=== PATIENT | male | born 1940 | race Caucasian/White ===

== ENCOUNTER 2016-09-16 08:48 | Emergency (ER) | payer MEDICARE ==
[2016-09-16] MEDS ORDERED: Ondansetron INJ* 2 MG/ML VIAL IV ONE (09:51)
[2016-09-16] MEDS ORDERED: Morphine INJ* 4 MG/ML 1 ML SYRINGE IV ONE (09:51)
[2016-09-16] MEDS ORDERED: Ondansetron INJ* 2 MG/ML VIAL ONE (09:52)
[2016-09-16] MEDS ORDERED: Morphine INJ* 4 MG/ML 1 ML SYRINGE ONE (09:52)
[2016-09-16 10:16] LABS: Hematocrit 43 % (42-52); Mean Corpuscular HGB Conc 33 g/dl (31-36); Mean Corpuscular Hemoglobin 29 pg (27-31); Mean Corpuscular Volume 89 fL (80-94); Mean Platelet Volume 8 um3 (7.4-10.4); Red Blood Count 4.83 10^6/ul (4.0-5.4); Red Cell Distribution Width 15 % (10.5-15); White Blood Count 14.2 10^3/ul (3.5-10.8)
[2016-09-16 10:44] LABS: Albumin 4.3 g/dL (3.2-5.2); BUN/Creatinine Ratio 14.7 (8-20); C Reactive Protein 20.88 mg/L (< 5.00); Calcium 9.9 mg/dL (8.6-10.3); EGFR African American 58.4 (>60); EGFR Non-African American 45.4 (>60); Globulin 3.6 g/dL (2-4); Potassium 4.2 mmol/L (3.5-5.0); Total Bilirubin 1.1 mg/dL (0.2-1.0); Total Protein 7.9 g/dL (6.4-8.9)
[2016-09-16 10:47] LABS: Urine Bacteria Absent (Absent); Urine Bilirubin Negative (Negative); Urine Glucose Negative (Negative); Urine Nitrite Positive (Negative)
[2016-09-16] MEDS ORDERED: Ciprofloxacin 400MG IVPREMIX(* 400 MG/200 ML BAG IVPB ONE (11:00)
[2016-09-16 12:57] VITALS: BP 134/82
--- NOTE | 2016-09-16 18:55 | ED ---
Satish Guzmán Thomas, scribed for Oswaldo Contreras MD on 09/16/16 at 0905 . GI/ HPI - HPI Summary HPI Summary: The pt is a 76 y/o M accompanied by and presenting to the ED c/o inability to void and lower abd pain since last night The pt reports that he had hematuria at 03:00 this morning. The pain is rated 9/10. The pain is aggravated and alleviated by nothing. The patient has not treated the pain prior to arrival. Pt additionally c/o hematuria. Pt denies fever. PMHx: BPH, HTN. SHx: former smoker, no alcohol, no drugs. - History of Current Complaint Chief Complaint: EDUrogenitalProblems Stated Complaint: BLOOD IN URINE Hx Obtained From: Patient, Family/Dietist - in room Onset/Duration: Started Days Ago - inability to void since last night, Worse Since - this AM at 03:00 Timing: Constant Severity: Severe Current Severity: Severe Pain Intensity: 9 Associated Signs and Symptoms: Positive: Hematuria, Other: - POS: lower abd pain. Negative: Fever Aggravating Factor(s): Nothing Alleviating Factor(s): Nothing - Allergy/Home Medications Allergies/Adverse Reactions: Allergies Allergy/AdvReac Type Severity Reaction Status Date / Time No Known Allergies Allergy Verified 08/05/15 08:30 PMH/Surg Hx/FS Hx/Imm Hx Previously Healthy: No Cardiovascular History: Reports: Hx Hypertension History: Reports: Hx Benign Prostatic Hyperplasia - Surgical History Surgery Procedure, Year, and Place: none Infectious Disease History: Denies: Traveled Outside the [place] in Last 30 Days - Family History Known Family History: Negative: Diabetes - Social History Alcohol Use: None Substance Use Type: Reports: None Smoking Status (MU): Former Smoker Review of Systems Negative: Fever Positive: hematuria - today at 03:00, other - POS: inability to void since last night All Other Systems Reviewed And Are Negative: Yes Physical Exam - Summary Physical Exam Summary: VITAL SIGNS: Reviewed. GENERAL: ~Patient is an elderly male who is lying in the stretcher. He is in a lot of distress secondary to urinary discomfort. HEAD AND FACE: No signs of trauma. ~No ecchymosis, hematomas or skull depressions. No sinus tenderness. EYES: PERRLA, EOMI x 2, No injected conjunctiva, no nystagmus. EARS: Hearing grossly intact. Ear canals and tympanic membranes are within normal limits. MOUTH: Oropharynx within normal limits. NECK: Supple, trachea is midline, no adenopathy, no JVD, no carotid bruit, no c- spine tenderness, neck with full ROM. CHEST: Symmetric, no tenderness at palpation LUNGS: Clear to auscultation bilaterally. No wheezing or crackles. CVS: Regular rate and rhythm, S1 and S2 present, no murmurs or gallops appreciated. ABDOMEN: Soft, distended, and tenderness to the lower abd secondary to distension. No rebound no guarding, and no masses palpated. Bowel sounds are normal. EXTREMITIES: FROM in all major joints, no edema, no cyanosis or clubbing. NEURO: Alert and oriented x 3. No acute neurological deficits. Speech is normal and follows commands. SKIN: Dry and warm Triage Information Reviewed: Yes Vital Signs On Initial Exam: Initial Vitals Temp Pulse Resp BP Pulse Ox 96.6 F 101 22 185/99 96 09/16/16 08:49 09/16/16 08:49 09/16/16 08:49 09/16/16 08:49 09/16/16 08:49 Vital Signs Reviewed: Yes Diagnostics - Vital Signs Vital Signs Temp Pulse Resp BP Pulse Ox 09/16/16 08:49 96.6 F 101 22 185/99 96 - Laboratory Lab Results: Lab Results 09/16/16 09/16/16 09/16/16 Range/Units 09:55 09:55 09:55 WBC 14.2 H (3.5-10.8) 10^3/ul RBC 4.83 (4.0-5.4) 10^6/ul Hgb 14.0 (14.0-18.0) g/dl Hct 43 (42-52) % MCV 89 (80-94) fL MCH 29 (27-31) pg MCHC 33 (31-36) g/dl RDW 15 (10.5-15) % Plt Count 215 (150-450) 10^3/ul MPV 8 (7.4-10.4) um3 Neut % (Auto) 85.2 H (38-83) % Lymph % (Auto) 7.9 L (25-47) % [place] % (Auto) 6.5 (1-9) % Eos % (Auto) 0.1 (0-6) % Baso % (Auto) 0.3 (0-2) % Absolute Neuts (auto) 12.1 H (1.5-7.7) 10^3/ul Absolute Lymphs (auto) 1.1 (1.0-4.8) 10^3/ul Absolute Monos (auto) 0.9 H (0-0.8) 10^3/ul Absolute Eos (auto) 0 (0-0.6) 10^3/ul Absolute Basos (auto) 0 (0-0.2) 10^3/ul Absolute Nucleated RBC 0.01 10^3/ul Nucleated RBC % 0 Sodium 136 (133-145) mmol/L Potassium 4.2 (3.5-5.0) mmol/L Chloride 100 L (101-111) mmol/L Carbon Dioxide 26 (22-32) mmol/L Anion Gap 10 (2-11) mmol/L BUN 22 (6-24) mg/dL Creatinine 1.50 H (0.67-1.17) mg/dL Est GFR ( Amer) 58.4 (>60) Est GFR (Non-Af Amer) 45.4 (>60) BUN/Creatinine Ratio 14.7 (8-20) Glucose 149 H (70-100) mg/dL Lactic Acid 2.5 H* (0.5-2.0) mmol/L Calcium 9.9 (8.6-10.3) mg/dL Total Bilirubin 1.10 H (0.2-1.0) mg/dL AST 15 (13-39) U/L ALT 16 (7-52) U/L Alkaline Phosphatase 66 (34-104) U/L C-Reactive Protein 20.88 H (< 5.00) mg/L Total Protein 7.9 (6.4-8.9) g/dL Albumin 4.3 (3.2-5.2) g/dL Globulin 3.6 (2-4) g/dL Albumin/Globulin Ratio 1.2 (1-3) Urine Color Urine Appearance Urine pH (5-9) Ur Specific [employer] Mdl (1.010-1.030) Urine Protein (Negative) Urine Ketones (Negative) Urine Blood (Negative) Urine Nitrate (Negative) Urine Bilirubin (Negative) Urine Urobilinogen (Negative) Ur Leukocyte Esterase (Negative) Urine WBC (Auto) (Absent) Urine RBC (Auto) (Absent) Urine Bacteria (Absent) Urine Glucose (Negative) 09/16/16 Range/Units 10:24 WBC (3.5-10.8) 10^3/ul RBC (4.0-5.4) 10^6/ul Hgb (14.0-18.0) g/dl Hct (42-52) % MCV (80-94) fL MCH (27-31) pg MCHC (31-36) g/dl RDW (10.5-15) % Plt Count (150-450) 10^3/ul MPV (7.4-10.4) um3 Neut % (Auto) (38-83) % Lymph % (Auto) (25-47) % [place] % (Auto) (1-9) % Eos % (Auto) (0-6) % Baso % (Auto) (0-2) % Absolute Neuts (auto) (1.5-7.7) 10^3/ul Absolute Lymphs (auto) (1.0-4.8) 10^3/ul Absolute Monos (auto) (0-0.8) 10^3/ul Absolute Eos (auto) (0-0.6) 10^3/ul Absolute Basos (auto) (0-0.2) 10^3/ul Absolute Nucleated RBC 10^3/ul Nucleated RBC % Sodium (133-145) mmol/L Potassium (3.5-5.0) mmol/L Chloride (101-111) mmol/L Carbon Dioxide (22-32) mmol/L Anion Gap (2-11) mmol/L BUN (6-24) mg/dL Creatinine (0.67-1.17) mg/dL Est GFR ( Amer) (>60) Est GFR (Non-Af Amer) (>60) BUN/Creatinine Ratio (8-20) Glucose (70-100) mg/dL Lactic Acid (0.5-2.0) mmol/L Calcium (8.6-10.3) mg/dL Total Bilirubin (0.2-1.0) mg/dL AST (13-39) U/L ALT (7-52) U/L Alkaline Phosphatase (34-104) U/L C-Reactive Protein (< 5.00) mg/L Total Protein (6.4-8.9) g/dL Albumin (3.2-5.2) g/dL Globulin (2-4) g/dL Albumin/Globulin Ratio (1-3) Urine Color Yellow Urine Appearance Cloudy Urine pH 6.0 (5-9) Ur Specific [employer] Mdl 1.009 L (1.010-1.030) Urine Protein 2+(100 mg/dl) H (Negative) Urine Ketones Negative (Negative) Urine Blood 3+ H (Negative) Urine Nitrate Positive H (Negative) Urine Bilirubin Negative (Negative) Urine Urobilinogen Negative (Negative) Ur Leukocyte Esterase 3+ H (Negative) Urine WBC (Auto) 3+(>20/hpf) H (Absent) Urine RBC (Auto) 3+(>10/hpf) H (Absent) Urine Bacteria Absent (Absent) Urine Glucose Negative (Negative) Result Diagrams: 09/16/16 09:55 09/16/16 09:55 Lab Statement: Any lab studies that have been ordered have been reviewed, and results considered in the medical decision making process. GIGU Course/Dx - Course Assessment/Plan: The pt is a 76 y/o M accompanied by and presenting to the ED c/o inability to void and lower abd pain since last night The pt reports that he had hematuria at 03:00 this morning. The pain is rated 9/10. The pain is aggravated and alleviated by nothing. The patient has not treated the pain prior to arrival. Pt additionally c/o hematuria. Pt denies fever. PMHx: BPH, HTN. SHx: former smoker, no alcohol, no drugs. Tests show WBC 14.3 without bands, creatinine 1.5 (which is chronic for him), and glucose 149. UA is consistent for UTI. In the ED course we placed a avila catheter which had some hematuria. The patient was given IV fluids and ciprofloxacin for UTI. The patient is feeling better. The pain has subsided, therefore, the patient will be discharged home with follow up with urology. He will continue to have the Avila catheter in him until he sees urology. The patient is hemodynamically stable and AOx3. He is diagnosed with urinary retention, UTI, and hematuria. I discussed all the findings and test results with the patient. Patient was instructed to return to the emergency room immediately if any of the symptoms return or worsens. They were explained the possibility of an early abdominal pathology which was not detected at this time despite the physical exam and testing. They understand and agree. Abdominal exam before discharge: Soft, NT. No signs of distention. BS present. No rebound no guarding, and no masses palpated. Patient is alert and oriented and hemodynamically stable. Patient is to follow up with primary care physician in the next 2 to 3 days. Patient agree and understands. - Diagnoses Differential Diagnoses - Male: Other Provider Diagnoses: Urinary retention, UTI (urinary tract infection), Hematuria Discharge - Discharge Plan Condition: Stable Disposition: HOME Prescriptions: Ciprofloxacin TAB* [Cipro 500 MG TAB*] 500 mg PO BID #6 tab Patient Education Materials: Urinary Retention in Men (ED), Urinary Tract Infection in Men (ED), Hematuria (ED) Referrals: Thomas Blanchard MD [Medical Doctor] - 2 Days The documentation as recorded by the Satish carrillo Thomas accurately reflects the service I personally performed and the decisions made by , Oswaldo Contreras MD.
--- NOTE | 2016-09-18 09:18 | PN ---
Progress Note - Progress Note Date of Service: 09/18/16 Note: Patient urine culture grew citrobacter Braakii >100,000. patient placed on cipro. will wait for final culture.
== END 2016-09-16 12:53 | disposition home or self-care (01) ==
LOC: ED 08:48
DX: R33.9 Retention of urine, unspecified (principal); N39.0 Urinary tract infection, site not specified; R31.9 Hematuria, unspecified; R10.30 Lower abdominal pain, unspecified
CPT/HCPCS: 36415; 80053; 81003; 81015; 83605; 85025; 86140; 87077; 87086; 87186; 96374; 96375; 99285; J0744; J2270; J2405

== ENCOUNTER 2017-07-06 00:22 | Inpatient (IN) | payer MEDICARE ==
[2017-07-06] MEDS ORDERED: Ondansetron INJ* 2 MG/ML VIAL IV ONE (01:03)
[2017-07-06] MEDS ORDERED: Morphine VIAL* 4 MG/ML VIAL (1 ml vial) IV ONE (01:03)
[2017-07-06 01:27] LABS: ABS Basophils 0 10^3/ul (0-0.2); ABS Eosinophils 0 10^3/ul (0-0.6); ABS Monocytes 0.9 10^3/ul (0-0.8); ABS Nucleated RBC 0 10^3/ul; Eosinophil % 0.4 % (0-6); Hematocrit 37 % (42-52); Hemoglobin 12.2 g/dl (14.0-18.0); Lymphocyte % 9.2 % (25-47); Mean Corpuscular HGB Conc 33 g/dl (31-36); Mean Corpuscular Hemoglobin 28 pg (27-31); Mean Corpuscular Volume 86 fL (80-94); Mean Platelet Volume 7.5 um3 (7.4-10.4); Nucleated Red Blood Cells % 0; Platelet Count 186 10^3/ul (150-450); Red Blood Count 4.29 10^6/ul (4.0-5.4); Red Cell Distribution Width 15 % (10.5-15)
[2017-07-06 01:37] LABS: INR 0.98 (0.77-1.02)
[2017-07-06 01:45] LABS: EGFR Non-African American 53.4 (>60)
--- NOTE | 2017-07-06 02:42 | HP ---
H&P (Free Text) History and Physical: PCP: none Date/Time: 07/06/2017 0215 CC: fall/L hip pain HPI: Mr Abbott is a 77YO male with an incomplete PMHx due to not following with a PCP. He does give a HX of chronic SOB, moderate hardness of hearing, urinary retention with indwelling avila which he has come to the ED to have exchanged when he felt it necessary. This AM he was carrying a propane tank when he tripped and fell landing on his L hip experiencing immediate severe pain. There were no prodromal symptoms. He did not hit his head and did not lose consciousness. He was unable to bear weight and required assistance into his home where he spent the rest of the day. Tonight his pain was not improving and he could not stand and so decided to present for evaluation which has revealed a displaced L intertrochanteric hip FX. He denies SOB or chest pain w/ exertion , HX heart/lung/liver/kidney disease. Lab values are reasonably normal. Case was reviewed w/ B MD Germaine orthopedic surgeon 1st call who did not feel comfortable performing the surgery and deferred to A MD Alexandra orthopedic surgeon 2nd call who accepted. PMedHx chronic SOB moderate hardness of hearing urinary retention with indwelling avila CKD 3 Ambulatory Orders NK [No Home Medications Reported] 07/06/17 Allergies No Known Allergies Allergy (Verified 08/05/15 08:30) PSurgHx denies SocHx: quit smoking "50-60 years ago", denies alcohol & recreational drugs; lives with his ; full code status FamHx: denies chronic illnesses ROS: as above, otherwise reviewed and all were negative vitals: Vital Signs Temp 36.5 C 07/06/17 00:34 Pulse 90 07/06/17 03:32 Resp 20 07/06/17 03:32 BP 172/94 07/06/17 03:32 Pulse Ox 95 07/06/17 03:32 Intake & Output 07/05/17 07/05/17 07/06/17 11:59 23:59 11:59 Weight 108.862 kg Constitutional: NAD, normally developed, obese elderly white male HEENM: atraumatic; sclera/conjunctiva: anicteric/clear; hearing: clinically intact; oropharynx: clear, mucosa moist Neck: soft tissue: non-tender; thyroid: Pulmonary: clear to auscultation bilaterally, good aeration, no accessory muscle use CV: RR/RR, normal S1S2, no carotid bruit, no jugular venous distention, 2+ B DP/ PT, 1+ BLE edema Abdominal: soft, non-distended, non-tender, no rebound/guarding/rigidity, normoactive bowel sounds, no hepatosplenomegaly or masses, no costovertebral angle tenderness Musculoskeletal: general: LLE shortened & externally rotated; gait: currently non-ambulatory Integumental: normal appearance and texture of exposed skin Psychiatric orientation: AA&O to PPS affect: calm mood: cooperative eye contact: fair content: reliable responses: timely insight: fair Testing: Lab Results 07/06/17 07/06/17 07/06/17 Range/Units 01:22 01:22 01:22 WBC 11.0 H (3.5-10.8) 10^3/ul RBC 4.29 (4.0-5.4) 10^6/ul Hgb 12.2 L (14.0-18.0) g/dl Hct 37 L (42-52) % MCV 86 (80-94) fL MCH 28 (27-31) pg MCHC 33 (31-36) g/dl RDW 15 (10.5-15) % Plt Count 186 (150-450) 10^3/ul MPV 7.5 (7.4-10.4) um3 Neut % (Auto) 81.5 (38-83) % Lymph % (Auto) 9.2 L (25-47) % [place] % (Auto) 8.6 H (0-7) % Eos % (Auto) 0.4 (0-6) % Baso % (Auto) 0.3 (0-2) % Absolute Neuts (auto) 9.0 H (1.5-7.7) 10^3/ul Absolute Lymphs (auto) 1.0 (1.0-4.8) 10^3/ul Absolute Monos (auto) 0.9 H (0-0.8) 10^3/ul Absolute Eos (auto) 0 (0-0.6) 10^3/ul Absolute Basos (auto) 0 (0-0.2) 10^3/ul Absolute Nucleated RBC 0 10^3/ul Nucleated RBC % 0 INR (Anticoag Therapy) 0.98 (0.77-1.02) APTT 28.7 (26.0-36.3) seconds Sodium 137 L (139-145) mmol/L Potassium 4.4 (3.5-5.0) mmol/L Chloride 103 (101-111) mmol/L Carbon Dioxide 26 (22-32) mmol/L Anion Gap 8 (2-11) mmol/L BUN 22 (6-24) mg/dL Creatinine 1.30 H (0.67-1.17) mg/dL Est GFR ( Amer) 68.7 (>60) Est GFR (Non-Af Amer) 53.4 (>60) BUN/Creatinine Ratio 16.9 (8-20) Glucose 150 H (70-100) mg/dL Calcium 9.0 (8.6-10.3) mg/dL Total Bilirubin 0.80 (0.2-1.0) mg/dL AST 13 (13-39) U/L ALT 12 (7-52) U/L Alkaline Phosphatase 50 (34-104) U/L Troponin I 0.00 (<0.04) ng/mL Total Protein 6.9 (6.4-8.9) g/dL Albumin 3.8 (3.2-5.2) g/dL Globulin 3.1 (2-4) g/dL Albumin/Globulin Ratio 1.2 (1-3) Blood Type Antibody Screen 07/06/17 Range/Units 01:22 WBC (3.5-10.8) 10^3/ul RBC (4.0-5.4) 10^6/ul Hgb (14.0-18.0) g/dl Hct (42-52) % MCV (80-94) fL MCH (27-31) pg MCHC (31-36) g/dl RDW (10.5-15) % Plt Count (150-450) 10^3/ul MPV (7.4-10.4) um3 Neut % (Auto) (38-83) % Lymph % (Auto) (25-47) % [place] % (Auto) (0-7) % Eos % (Auto) (0-6) % Baso % (Auto) (0-2) % Absolute Neuts (auto) (1.5-7.7) 10^3/ul Absolute Lymphs (auto) (1.0-4.8) 10^3/ul Absolute Monos (auto) (0-0.8) 10^3/ul Absolute Eos (auto) (0-0.6) 10^3/ul Absolute Basos (auto) (0-0.2) 10^3/ul Absolute Nucleated RBC 10^3/ul Nucleated RBC % INR (Anticoag Therapy) (0.77-1.02) APTT (26.0-36.3) seconds Sodium (139-145) mmol/L Potassium (3.5-5.0) mmol/L Chloride (101-111) mmol/L Carbon Dioxide (22-32) mmol/L Anion Gap (2-11) mmol/L BUN (6-24) mg/dL Creatinine (0.67-1.17) mg/dL Est GFR ( Amer) (>60) Est GFR (Non-Af Amer) (>60) BUN/Creatinine Ratio (8-20) Glucose (70-100) mg/dL Calcium (8.6-10.3) mg/dL Total Bilirubin (0.2-1.0) mg/dL AST (13-39) U/L ALT (7-52) U/L Alkaline Phosphatase (34-104) U/L Troponin I (<0.04) ng/mL Total Protein (6.4-8.9) g/dL Albumin (3.2-5.2) g/dL Globulin (2-4) g/dL Albumin/Globulin Ratio (1-3) Blood Type A Negative Antibody Screen Negative ECG, personally reviewed: NSR rate 93, Q-waves II/III/AVF, no ischemia CXR, personally reviewed: no acute process XRY L hip, personally reviewed: displaced L intertrochanteric hip FX Impression: 77M w/ obscure HX presenting with L hip FX s/p mechanical fall DIAGNOSIS & PLAN Primary L intertrochanteric hip FX, displaced : admit for surgical management : Lexie Morris MD orthopedic surgeon consulted & will evaluate in AM : obtain full L femur XRY : obtain CT L hip : pain control : NPO x/ meds w/ sips H20 : bed rest : supportive care evidence of old inferior AL on ECG : denies anginal symptoms w/ exertion : check ECHO in AM : consider cardiology consult, if appropriate pending above elevated BP : uncertain if HTN or 2nd pain : pain control & monitor : hydralazine IV PRN CKD stg 3 : periodic monitoring Secondary urinary retention w/ chronic indwelling avila : current avila is filthy and malodorous, tubing is nearly black; exchange : son is adamant he does not want a specific urologist to see his father, but is unsure which - will further inform chronic SOB : negative CXR : remote HX of smoking Admission Rational: inpatient for surgical management of displaced L hip FX DVTp: heparin SQ Code Status: full HCP:
--- NOTE | 2017-07-06 03:11 | ED ---
Rupinder Guzmán Gabriel, scribalex for Luiza Gimenez MD on 07/06/17 at 0113 . Lower Extremity - HPI Summary HPI Summary: This patient is a 77 year old M presenting to [facility] accompanied by his family s/ p fall that occurred earlier today. The patient had a mechanical fall on concrete, injuring his left hip. He attempted to lay in bed until it resolved but he is still unable to walk. The patient rates the pain 4/10 in severity. Patient reports LLE pain. - History of Current Complaint Chief Complaint: EDHipPelvisInjury Stated Complaint: FALL/POSSIBLE BROKEN LEG Time Seen by Provider: 07/06/17 00:34 Hx Obtained From: Patient Mechanism Of Injury: Fall From A Standing Position Onset of Pain: Immediate Onset/Duration: Still Present Severity Initially: Mild Severity Currently: Mild Pain Intensity: 4 Pain Scale Used: 0-10 Numeric Timing: Constant Location: Is Discrete @ - LLE Able to Bear Weight: No - Allergies/Home Medications Allergies/Adverse Reactions: Allergies Allergy/AdvReac Type Severity Reaction Status Date / Time No Known Allergies Allergy Verified 08/05/15 08:30 PMH/Surg Hx/FS Hx/Imm Hx Endocrine/Hematology History: Denies: Hx Thyroid Disease Cardiovascular History: Reports: Hx Hypertension Denies: Hx Auto Implanted Cardiovert Defib, Hx Embolism, Hx Pacemaker/ICD, Hx Peripheral Vascular Disease, Hx Rheumatic Fever Respiratory History: Denies: Hx Chronic Bronchitis, Hx Chronic Obstructive Pulmonary Disease (COPD ) GI History: Denies: Hx Gastrointestinal Bleed History: Reports: Hx Benign Prostatic Hyperplasia Musculoskeletal History: Denies: Hx Congenital Bone Abnormalities - Surgical History Surgery Procedure, Year, and Place: none Infectious Disease History: No Infectious Disease History: Denies: Traveled Outside the [place] in Last 30 Days - Family History Known Family History: Negative: Diabetes, Renal Disease, Respiratory Disease, Seizure Disorder - Social History Lives: With Family Alcohol Use: None Substance Use Type: Reports: None Smoking Status (MU): Former Smoker Review of Systems Constitutional: Other - fall Negative: Fever Positive: Other - LLE pain All Other Systems Reviewed And Are Negative: Yes Physical Exam - Summary Physical Exam Summary: VITAL SIGNS: Reviewed. GENERAL: Patient is an elderly male who is lying comfortable in the stretcher. Patient is not in any acute respiratory distress. HEAD AND FACE: No signs of trauma. No ecchymosis, hematomas or skull depressions. No sinus tenderness. EYES: PERRLA, EOMI x 2, No injected conjunctiva, no nystagmus. EARS: Hearing grossly intact. Ear canals and tympanic membranes are within normal limits. MOUTH: Oropharynx within normal limits. NECK: Supple, trachea is midline, no adenopathy, no JVD, no carotid bruit, no c- spine tenderness, neck with full ROM. CHEST: Symmetric, no tenderness at palpation LUNGS: Clear to auscultation bilaterally. No wheezing or crackles. CVS: Regular rate and rhythm, S1 and S2 present, no murmurs or gallops appreciated. ABDOMEN: Soft, non-tender. distended. No rebound no guarding, and no masses palpated. Bowel sounds are normal. Sparks catheter in place EXTREMITIES: LLE is shorter and TTP, there is bilateral LE edema NEURO: Alert and oriented x 3. No acute neurological deficits. Speech is normal and follows commands. SKIN: Dry and warm Triage Information Reviewed: Yes Vital Signs On Initial Exam: Initial Vitals Temp Pulse Resp BP Pulse Ox 97.7 F 97 20 154/105 96 07/06/17 00:34 07/06/17 00:34 07/06/17 00:34 07/06/17 00:34 07/06/17 00:34 Vital Signs Reviewed: Yes Diagnostics - Vital Signs Vital Signs Temp Pulse Resp BP Pulse Ox 07/06/17 00:34 97.7 F 97 20 154/105 96 - Laboratory Result Diagrams: 07/06/17 01:22 07/06/17 01:22 Lab Statement: Any lab studies that have been ordered have been reviewed, and results considered in the medical decision making process. - Radiology CXR Radiology Interpretation Completed By: ED Physician - mild venous congestion hip Xray Radiology Interpretation Completed By: ED Physician - Left trochanter fracture - EKG 01:54 Cardiac Rate: NL EKG Rhythm: Sinus Rhythm - at 92 BPM EKG Interpretation: Normal axis. Normal interval. No ischemic changes Lower Extremity Course/Dx - Course Assessment/Plan: This patient is a 77 year old M presenting to [facility] accompanied by his family s/p fall that occurred earlier today. The patient had a mechanical fall on concrete, injuring his left hip. He attempted to lay in bed until it resolved but he is still unable to walk. The patient rates the pain 4/10 in severity. Patient reports LLE pain. An EKG reveals Normal axis. Normal interval. No ischemic changes. CXR reveals, mild venous congestion. Hip xray reveals fracture. Blood work obtained. In the ED course the patient was given zofran and morphine. We discussed patient care with Dr. Alexander and they accepted the patient for admission. Patient will be admitted. The patient is agreeable with this plan. - Diagnoses Provider Diagnoses: Hip fracture - Physician Notifications Discussed Care Of Patient With: Lloyd Alexander Time Discussed With Above Provider: 02:00 Instructed by Provider To: Admit As Inpatient Discharge - Sign-Out/Discharge Documenting (check all that apply): Discharge/Admit/Transfer - admitted to Dr. Goel - Discharge Plan Condition: Fair Disposition: ADMITTED TO [facility] Referrals: Non Staff,Doctor [Medical Doctor] - The documentation as recorded by the Rupinder carrillo Gabriel accurately reflects the service I personally performed and the decisions made by me, Luiza Gimenez MD.
[2017-07-06] MEDS ORDERED: Albuterol 2.5 MG/3 ML NEB.SOL* (0.083%) INH PRN (04:44)
[2017-07-06] MEDS ORDERED: Ondansetron INJ* 2 MG/ML VIAL IV PRN (05:00)
[2017-07-06] MEDS ORDERED: hydrALAZINE IV* 20 MG/ML VIAL IV PRN (05:00)
[2017-07-06] MEDS: HYDROmorphone INJ* 2 MG/ML CARPUJECT SYRINGE IV PRN ×3 (06:14→17:32)
[2017-07-06] MEDS: NS 0.9% 1000 ML* 1,000 ML IV SCH ×2 (06:16→20:07)
[2017-07-06] MEDS ORDERED: Perflutren Lipid Microsphere* 3 ML VIAL ONE (07:38)
--- NOTE | 2017-07-06 07:57 | RAD ---
Indication: Left hip injury. 2 views left hip and an AP view of the pelvis demonstrates intertrochanteric fracture of the left hip. Pelvic ring is grossly intact. IMPRESSION: Intertrochanteric fracture left hip.
--- NOTE | 2017-07-06 07:57 | RAD ---
Indication: Fall, preop chest. Single frontal view of the chest performed at 0133 hours was reviewed. Comparison is made with previous exam dated August 05, 2015. No mediastinal shift is noted. Heart is of normal size and configuration. Lung pritchard appear clear. There may be some bibasilar atelectasis noted. Overall no changes noted since prior exam. IMPRESSION: NO ACTIVE CARDIOPULMONARY DISEASE IS NOTED. LIKELY BIBASILAR ATELECTASIS.
--- NOTE | 2017-07-06 08:30 | RAD ---
Indication: Left hip fracture. CT of the pelvis was performed in the axial plane. Sagittal and coronal reconstructed images were obtained. The pelvic ring is intact. The inferior and superior pubic rami are unremarkable. There is a moderately comminuted fracture of the left hip extending from the lesser to greater trochanter. Small adjacent hematoma is noted. The right hip demonstrates no evidence of fracture. A bladder catheter is in place. There is suggestion of a intraluminal mass urinary bladder for which cystoscopy is suggested. There is a markedly enlarged prostate noted. Diverticulosis without evidence of diverticulitis is noted. IMPRESSION: Mildly comminuted intertrochanteric fracture of the left hip.
--- NOTE | 2017-07-06 08:36 | RAD ---
INDICATION: Left hip fracture COMPARISON: Left hip same date TECHNIQUE: AP and lateral views were obtained. FINDINGS: There is an intertrochanteric fracture of the left femur as described in a separate report. There are no other femoral fractures. There is osteoarthritic change about the knee. IMPRESSION: INTERTROCHANTERIC FRACTURE LEFT FEMUR
--- NOTE | 2017-07-06 08:38 | CONSULT ---
Consult Consult: Orthopedic Surgery Consultation Date: 07/06/17 Requesting Service: ER Chief Complaint: Left hip pain. History: A 77-year-old man who sustained a mechanical fall last night while carrying a propane tank. He fell onto his left hip. He had immediate pain and an inability to bear weight. He was brought into the emergency room for further evaluation. Denies head strike or LOC. At baseline, he walks without assistive devices at home but uses a walker or wheelchair in the community. The pain is located at the left hip and is constant moderate, sharp. Pain worse with hip ROM and lessened when rested. Review of Systems: Negative for fever, recent visual changes, difficulty swallowing, chest pain, abdominal pain, easy bruising, diffuse weakness or lack of coordination, and diffuse rash. He has an indwelling Sparks catheter. He does report chronic shortness of breath. PMH: Indwelling Sparks catheter. Stroke. Chronic kidney disease. Shortness of breath. He does not have a primary care physician or regularly see a doctor. PSH: Denies Medications: Denies Allergies: No known drug allergies SH: Former smoker. Denies alcohol or illicit drugs. Lives with his . FH: Noncontributory Physical Examination: Constitutional: Temperature 98.3, pulse 96, respiratory rate 14, oxygen saturation 99% on room air, blood pressure 148/67 General appearance is healthy and non-septic in no acute distress. Cardiovascular: Pulse examination demonstrates positive pedal pulses with brisk capillary refill. There are no varicosities. Heart with a regular rate and rhythm. Lungs sounds clear bilaterally. Abdomen: Soft and nontender Lymphatic: No lymphadenopathy appreciated. Skin: Bilateral upper and lower extremity examination demonstrates no ulcerative lesions. Psychiatric / Neurological: Appropriate affect. Alert and oriented to person, place and time. There is no significant abnormality in coordination appreciated. Normoreflexive deep tendon reflex of the affected extremity. Musculoskeletal: Bilateral upper extremities and contralateral lower extremity show full range of motion with no evidence of instability and no tenderness with palpation and 5 /5 strength. There is no gross deformity. The extremity is shortened and externally rotated Skin intact 5/5 motor strength distally with intact sensation to light touch There is no global swelling, edema, or varicosities. Pain with him logroll and heel strike No TTP at knee, lower leg, ankle, foot Palpable DP pulse. Flexes and extends ankle and toes. Imaging: X-rays were obtained, and independently interpreted and show a displaced left hip intertrochanteric fracture. Labs: WBC 11.0 HCT 37 Platelets 186 Cr 1.30 INR 0.98 Impression and Plan: 77-year-old man status post a mechanical fall with a displaced left hip intertrochanteric fracture. We discussed both nonoperative and operative treatment options. My recommendation is surgical intervention when medically cleared. Specifically, the surgery would be a left hip fracture open reduction and internal fixation with a cephalomedullary nail. We discussed the risks/benefits and pros/cons of both options. After this discussion, we came to the decision that we would move forward with surgery. For now, nonweightbearing in the affected extremity. NPO at midnight for possible OR tomorrow if medically cleared. Appreciate medical clearance. I recommend chemical and mechanical DVT prophylaxis. Joe Morris MD
[2017-07-06 08:49] LABS: Hematocrit 37 % (42-52); Hemoglobin 12.3 g/dl (14.0-18.0)
[2017-07-06] MEDS ORDERED: Heparin VIAL(*) 5000 UNITS/ML VIAL (FIVE THOUSAND) SUBCUT SCH (09:00)
[2017-07-06] MEDS: Pantoprazole IV* 40 MG IV SCH (09:52)
--- NOTE | 2017-07-06 10:23 | ECHO ---
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 PMHx: chronic SOB,remote smoking history,CKD stage III, old VA. Definity used to enhance images. Study completed with patient supine due to fractured left hip. Technical Comments: The study is technically difficult. Completed at 0810. The study is technically limited due to the patient's smoking history. Parasternal views good, apical views suboptimal. The study was technically limited due to the patient's inability to lay in the left lateral decubitus position. Left Ventricle: The left ventricular chamber size is decreased. Mild concentric left ventricular hypertrophy is observed. Global left ventricular wall motion and contractility are within normal limits. There is normal left ventricular systolic function. The estimated ejection fraction is 60-65%. Normal left ventricular diastolic filling is observed. Left Atrium: The left atrium is not well visualized. Right Ventricle: The right ventricular cavity size is normal. The right ventricular global systolic function is normal. Right Atrium: The right atrium is not well visualized. Aortic Valve: The aortic valve is trileaflet. Mild aortic cusp sclerosis is present. There is no evidence of aortic regurgitation. There is mild aortic stenosis. The highest aortic valve velocity was obtained with the standard probe from the A5C view. Mitral Valve: There is mitral annular calcification. There is no evidence of mitral regurgitation. There is no evidence of mitral stenosis. Tricuspid Valve: The tricuspid valve leaflets are normal. There is no evidence of tricuspid valve regurgitation. Unable to estimate the right ventricular systolic pressure. There is no tricuspid stenosis. Pulmonic Valve: The pulmonic valve structure is not well visualized. Pericardium: A pericardial fat pad is visualized. Aorta: There is mild dilatation of the ascending aorta. There is no dilatation of the aortic arch.Color suggestive of reversal of flow in diastole. There is no dilation of the aortic root. Pulmonary Artery: The main pulmonary artery is not well visualized. Venous: The venous system is not well visualized. Contrast: Definity was used to optimize study. A total of 5 ml used. Intravenous contrast was used to enhance endocardial border definition. Conclusions The study is technically limited. Mild concentric left ventricular hypertrophy is observed. Global left ventricular wall motion and contractility are within normal limits. The estimated ejection fraction is 60-65%. The right ventricular global systolic function is normal. There is mild aortic stenosis: mean gradient 11 mmHg, PATRICIO 2.2-2.7 mmHg. DI = 0.66. There is mitral annular calcification with normal function. There is mild dilatation of the ascending aorta. Color suggestive of reversal of flow in diastole in the descending aorta, obtaining additional views, possible artifact from Definity contrast. No prior echo to compare. Measurements Name Value Normal Range RVIDd (AP) 2D 2.2 cm (0.9 - 2.6) RVDdMajor (2D) 2.3 cm (2.2 - 4.4) IVSd (2D) 1.2 cm (0.6 - 1) LVPWd (2D) 1.2 cm (0.6 - 1) LVIDd (2D) 3.2 cm (3.6 - 5.4) LVIDs (2D) 2.1 cm - LV FS (2D) 34 % (25 - 45) Aortic Annulus 2.1 cm (1.4 - 2.6) Ao root diameter (2D) 3.3 cm (2.1 - 3.5) Ascending Ao 3.6 cm (2.1 - 3.4) Aortic arch 2.8 cm (1.8 - 3.4) Descending Ao 0.6 cm - Name Value Normal Range MV E-wave Vmax 0.9 m/sec - MV deceleration time 257 msec - MV A-wave Vmax 1.2 m/sec - MV E:A ratio 0.74 ratio - LV septal e' Vmax 0.08 m/sec - LV lateral e' Vmax 0.09 m/sec - LV E:e' septal ratio 11.25 ratio - LV E:e' lateral ratio 10 ratio - Name Value Normal Range AV Vmax 2.4 m/sec - AV VTI 44.5 cm - AV peak gradient 23.28 mmHg - AV mean gradient 11.01 mmHg - LVOT diameter 2.3 cm - LVOT Vmax 1.3 m/sec - LVOT VTI 29.2 cm - LVOT peak gradient 6.82 mmHg - LVOT mean gradient 2.88 mmHg - PATRICIO (continuity Vmax) 2.2 cm2 - PATRICIO (continuity VTI) 2.7 cm2 - Name Value Normal Range PV Vmax 1.4 m/sec - PV peak gradient 8.36 mmHg -
[2017-07-06] MEDS ORDERED: Buffered Lidocaine 0.9% SYRIN* 5 ML/SYR SYRINGE INTRADERM ONE (12:41)
--- NOTE | 2017-07-06 16:20 | PN ---
Hospitalist Progress Note Date of Service: 07/06/17 Pt seen and examined. Meds and labs reviewed. Pt is a poor historian and does not have PCP and mentions he usually have chronic SOB but has not been diagnosed with COPD and/or CHF. He is unclear whether he has mild NGUYEN prior to fall but previous documentations suggest he did not complain of this on presentation. ROS: Denied TRIPP/dizziness, F/C, N/V, CP, SOB, increased cough, sputum production , abd pain, diarrhea, constipation, dysuria, myalgias, arthralgias, throat pain , and new skin lesions. The rest of the 14 point ROS are unremarkable. PHYSICAL EXAM: GEN APPEARANCE: Awake, not in acute distress, obese HEENT: NC/AT, PERRLA, moist oral mucosa, (-) throat erythema NECK: Soft, supple, (-) cervical LAD, (-)JVD HEART: S1S2 WNL, RRR, No MRG CHEST: CTA, BL, GAE, No W/R/R ABD: Soft, ND/NT, NABS 4x Q EXT: No C/C/E SKIN: Warm to touch PSYCH: No active psychosis, hallucinations, depression, SI/HI ASSESSMENT AND PLAN: #Comminuted, minimally impacted left intertrochanteric fracture with vertical fracture line extending to proximal diaphysis: -Pre-operative eval: Pt has a low cardiac risk with RCRI = 1, for a high risk surgical procedure per current guidelines (ORIF w/cephallomedullary nail placement). 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
[2017-07-06] MEDS: Docusate CAP* 100 MG PO SCH (21:13)
[2017-07-07 05:59] LABS: Hematocrit 33 % (42-52); Mean Corpuscular HGB Conc 33 g/dl (31-36); Mean Corpuscular Hemoglobin 29 pg (27-31); Mean Corpuscular Volume 87 fL (80-94); Platelet Count 176 10^3/ul (150-450); Red Blood Count 3.78 10^6/ul (4.0-5.4); Red Cell Distribution Width 15 % (10.5-15); White Blood Count 9.3 10^3/ul (3.5-10.8)
[2017-07-07 06:05] LABS: INR 1.11 (0.77-1.02)
[2017-07-07 06:16] LABS: EGFR Non-African American 53.4 (>60)
[2017-07-07] MEDS: Docusate CAP* 100 MG PO SCH ×2 (07:51→22:48)
[2017-07-07] MEDS: Pantoprazole IV* 40 MG IV SCH (07:51)
[2017-07-07] MEDS: HYDROmorphone INJ* 2 MG/ML CARPUJECT SYRINGE IV PRN ×2 (10:35→22:17)
[2017-07-07] MEDS ORDERED: Naloxone* 0.4 MG/ML 1 ML VIAL IV PRN ×2 (15:00→17:43)
[2017-07-07] MEDS ORDERED: PROCHLORPERAZINE INJ 5 MG/ML 2 ML VIAL IV PRN (15:05)
[2017-07-07] MEDS ORDERED: Acetaminophen TAB* 325 MG PO PRN (15:05)
[2017-07-07] MEDS ORDERED: DiMENhydriNATE IV* 50 MG/ML VIAL IV PUSH PRN (15:05)
[2017-07-07] MEDS ORDERED: Ondansetron ODT TAB* 4 MG PO PRN (15:05)
[2017-07-07] MEDS ORDERED: ceFAZolin 2 GM PREMIX (*) 2 GM/50 ML BAG IVPB ONE (15:26)
--- NOTE | 2017-07-07 15:35 | PN ---
Progress Note - Progress Note Date of Service: 07/07/17 Note: Pt seen and examined. Diagnosed with left hip IT fracture. NPO. In pain in bed. Alert and answers questions. Discussed case with Dr Morris and will assume care. Temp Pulse Resp BP Pulse Ox 97.8 F 87 20 147/69 96 07/07/17 11:51 07/07/17 11:51 07/07/17 11:51 07/07/17 11:51 07/07/17 11:51 NAD. AAOx3. lying comfortably in bed. left leg externally rotated. skin intact. calf soft, nontender. SILT grossly distally. brisk cap refill. able to dorsiflex /plantarflex ankle. flex/ext toes. 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
[2017-07-07] MEDS ORDERED: fentaNYL* 50 MCG/ML 2 ML VIAL (100 MCG VIAL) ONE ×3 (15:52→20:50)
[2017-07-07] MEDS ORDERED: Midazolam* 1 MG/ML 5 ML VIAL (5 MG) ONE (15:57)
[2017-07-07] MEDS ORDERED: Midazolam* 1 MG/ML 2 ML VIAL (2 MG) ONE (17:10)
[2017-07-07] MEDS ORDERED: Phenylephrine INJ* 10 MG/ML 1 ML VIAL (10 MG) ONE (17:13)
[2017-07-07] MEDS ORDERED: Bupivacaine 0.5% SDV PF* 30ML VIAL ONE (17:29)
--- NOTE | 2017-07-07 17:37 | PN ---
Hospitalist Progress Note Date of Service: 07/07/17 Pt seen and examined this AM. Meds and labs reviewed. Scheduled for ORIF w/ cephallomedulary nail plaicement later today. ROS: Denied TRIPP/dizziness, F/C, N/V, CP, SOB, increased cough, sputum production , abd pain, diarrhea, constipation, dysuria, myalgias, arthralgias, throat pain , and new skin lesions. The rest of the 14 point ROS are unremarkable. PHYSICAL EXAM: GEN APPEARANCE: Awake, not in acute distress, facial asymmetry post CVA in the past he mentions is old HEENT: NC/AT, PERRLA, moist oral mucosa, (-) throat erythema NECK: Soft, supple, (-) cervical LAD, (-)JVD HEART: S1S2 WNL, RRR, No MRG CHEST: CTA, BL, GAE, No W/R/R ABD: Soft, ND/NT, NABS 4x Q EXT: No C/C/E SKIN: Warm to touch PSYCH: No active psychosis, hallucinations, depression, SI/HI ASSESSMENT AND PLAN: #Comminuted, minimally impacted left intertrochanteric fracture with vertical fracture line extending to proximal diaphysis: -For scheduled ORIF w/cephallomedulary nail plaicement later today; defer with Orthopedics -Continue pain management -Continue current meds -Hold DVT prophylaxis with heparin at least 2-3 hours before and after planned surgical procedure, but will defer with orthopedic preference -Continue current meds #Chronic SOB: -Pt does not have significant smoking history for prolonged period of time; mentions he smoked 1 pack of cigarettes/week for only about 2 years and has not had any cigarettes for over 50 years -However, 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
[2017-07-07] MEDS: fentaNYL* 50 MCG/ML 2 ML VIAL (100 MCG VIAL) IV PRN ×2 (20:51→21:12)
[2017-07-07] MEDS ORDERED: Heparin VIAL(*) 5000 UNITS/ML VIAL (FIVE THOUSAND) SUBCUT SCH (21:00)
--- NOTE | 2017-07-07 21:26 | RAD ---
HISTORY: Left hip gamma nail, left hip fracture, fall COMPARISONS: July 06, 2017 TECHNIQUE: Fluoroscopy was provided for a surgical procedure. Total fluoroscopy time is: 84.5 seconds FINDINGS: Spot images demonstrate internal fixation of the proximal femur. IMPRESSION: FLUOROSCOPY WAS PROVIDED FOR A SURGICAL PROCEDURE CPT II Codes: G9500
[2017-07-08] MEDS: ceFAZolin 1 GM in Dextrose (*) 1 GM/50 ML BAG IVPB SCH ×3 (00:04→16:03)
[2017-07-08] MEDS: HYDROmorphone INJ* 2 MG/ML CARPUJECT SYRINGE IV PRN (04:04)
[2017-07-08 05:51] LABS: ABS Basophils 0.1 10^3/ul (0-0.2); ABS Eosinophils 0.1 10^3/ul (0-0.6); ABS Monocytes 0.9 10^3/ul (0-0.8); ABS Neutrophils 7.8 10^3/ul (1.5-7.7); ABS Nucleated RBC 0 10^3/ul; Eosinophil % 1.1 % (0-6); Hematocrit 33 % (42-52); Hemoglobin 10.9 g/dl (14.0-18.0); Mean Corpuscular HGB Conc 34 g/dl (31-36); Mean Corpuscular Hemoglobin 29 pg (27-31); Mean Corpuscular Volume 87 fL (80-94); Mean Platelet Volume 8.2 um3 (7.4-10.4); Nucleated Red Blood Cells % 0.1; Platelet Count 165 10^3/ul (150-450); Red Blood Count 3.76 10^6/ul (4.0-5.4); Red Cell Distribution Width 14 % (10.5-15); White Blood Count 9.9 10^3/ul (3.5-10.8)
[2017-07-08 06:13] LABS: EGFR Non-African American 64.7 (>60)
[2017-07-08] MEDS: Pantoprazole IV* 40 MG IV SCH (07:46)
[2017-07-08] MEDS: Docusate CAP* 100 MG PO SCH ×2 (10:08→22:15)
[2017-07-08] MEDS ORDERED: oxyCODONE/Acetamin 5/325 MG* TAB PO PRN ×3 (10:15→11:55)
[2017-07-08] MEDS ORDERED: Acetaminophen TAB* 325 MG PO PRN (10:16)
[2017-07-08] MEDS: Enoxaparin(*) 40 MG/0.4 ML SYR SUBCUT SCH (11:55)
--- NOTE | 2017-07-08 12:47 | PN ---
Progress Note - Progress Note Date of Service: 07/08/17 SOAP: Subjective: 77 y/o male s/p L hip intramed nail by Dr. Marie 07/07/2017. Patient pain controlled, does not want rehab, placement. No quesions re: surgery. + coughing, feeling of "frog in throat". VSS, afebrile overnight. Objective: General- Well appearing, NAD, AO Resting in bed comfortably, obese MSK- LLE- DF/PF = b/l, PT 2+, negative homans sign, mild edema b/l LEs, SITLT, surgical dressing intact, blood drainage noted over gauze, minimal tenderness to touch. Vital Signs Temp 98.6 F 07/08/17 03:50 Pulse 101 07/08/17 03:50 Resp 16 07/08/17 05:04 BP 162/73 07/08/17 03:50 Pulse Ox 94 07/08/17 03:50 Intake & Output 07/07/17 07/08/17 07/08/17 18:59 06:59 18:59 Intake Total 1000 1051 120 Output Total 1150 750 Balance -150 301 120 Intake: IV Fluids 1000 996 LR 1000 NS (0.9%) 996 IVPB 55 ABX - CEFAZOLIN 55 Oral 0 120 Output: Sparks 1000 750 Estimated Blood Loss 150 Assessment: Stable 77 y/o male s/p L hip intramed nail by Dr. Marie 07/07/2017. Plan: - DVT prophylaxis- lovenox while in house. - Continue PT/ OT - likely will need rehab, however patient refusing. - Follow up with Dr. Marie within 10-14 days - H&H - stable - post-op IV ABX - RUnning - 25% Weight Bearing to Left Leg - Percocet added for pain control - Pulmonary toilet, flutter valve ordered. Acetaminophen (Tylenol Tab*) 650 mg PO Q6H PRN PRN Reason: FEVER/PAIN Albuterol (Ventolin 2.5 Mg/3 Ml Neb.Magaly*) 2.5 mg INH Q2H PRN PRN Reason: SOB/WHEEZING Docusate Sodium (Colace Cap*) 200 mg PO BID BREE Last Admin: 07/08/17 10:08 Dose: Not Given Enoxaparin Sodium (Lovenox(*)) 40 mg SUBCUT 1200 [facility] Last Admin: 07/08/17 11:55 Dose: 40 mg Hydralazine HCl (Apresoline Iv*) 10 mg IV Q4H PRN PRN Reason: Systolic >170 Last Admin: 07/06/17 06:15 Dose: 10 mg Hydromorphone HCl (Dilaudid Inj*) 0.5 mg IV Q2H PRN PRN Reason: PAIN Last Admin: 07/08/17 04:04 Dose: 0.5 mg Lactated Ringer's (Lactated Ringers 1000 Ml Bag*) 1,000 mls @ 125 mls/hr IV PER RATE [facility] Last Admin: 07/08/17 06:44 Dose: 125 mls/hr Cefazolin Sodium/Dextrose (Kefzol 1 Gm In Dextrose Duplex (*)) 1 gm in 50 mls @ 200 mls/hr IVPB Q8H [facility] Stop: 07/08/17 16:14 Last Admin: 07/08/17 07:45 Dose: 200 mls/hr Ondansetron HCl (Zofran Inj*) 4 mg IV Q6H PRN PRN Reason: NAUSEA Oxycodone/Acetaminophen (Percocet 5/325 Tab*) 2 tab PO Q4H PRN PRN Reason: PAIN - MODERATE TO SEVERE Oxycodone/Acetaminophen (Percocet 5/325 Tab*) 1 tab PO Q4H PRN PRN Reason: PAIN - MILD TO MODERATE Pantoprazole Sodium (Protonix Iv*) 40 mg IV DAILY [facility] Last Admin: 07/08/17 07:46 Dose: 40 mg
--- NOTE | 2017-07-08 16:02 | PN ---
Hospitalist Progress Note Date of Service: 07/08/17 Pt seen and examined. Meds and labs reviewed. POD #1 Left hip gamma nail placement ROS: Denied TRIPP/dizziness, F/C, N/V, CP, SOB, increased cough, sputum production , abd pain, diarrhea, constipation, dysuria, myalgias, arthralgias, throat pain , and new skin lesions. The rest of the 14 point ROS are unremarkable. PHYSICAL EXAM: GEN APPEARANCE: Awake, not in acute distress, facial asymmetry post CVA in the past he mentions is old HEENT: NC/AT, PERRLA, moist oral mucosa, (-) throat erythema NECK: Soft, supple, (-) cervical LAD, (-)JVD HEART: S1S2 WNL, RRR, No MRG CHEST: CTA, BL, GAE, No W/R/R ABD: Soft, ND/NT, NABS 4x Q EXT: No C/C/BLLE (+)1 SKIN: Warm to touch PSYCH: No active psychosis, hallucinations, depression, SI/HI ASSESSMENT AND PLAN: #Comminuted, minimally impacted left intertrochanteric fracture with vertical fracture line extending to proximal diaphysis, S/P Left hip gamma nail placement POD#1: -Continue pain management -Continue current meds -Pt on antibiotics for surgical prophylaxis with Cefazolin? 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 Will continue to monitor. -For possible ORIF with cephalomedullary nail placement later today
--- NOTE | 2017-07-08 16:17 | PN ---
Progress Note - Progress Note Date of Service: 07/08/17 Note: Pt seen and examined. No SOB, CP. complains ofpain inknee Temp Pulse Resp BP Pulse Ox 98.0 F 96 16 142/68 95 07/08/17 11:41 07/08/17 11:41 07/08/17 12:00 07/08/17 11:41 07/08/17 11:41 AAOX3. NAD. LLE: dressing inplace. calfsoftand nontender.SILTgrossly distally. able to dorsiflex/plantarflex ankle. tender about knee. Laboratory Results - last 24 hr 07/08/17 07/08/17 05:05 05:05 WBC 9.9 RBC 3.76 L Hgb 10.9 L Hct 33 L MCV 87 MCH 29 MCHC 34 RDW 14 Plt Count 165 MPV 8.2 Neut % (Auto) 78.7 Lymph % (Auto) 10.0 L [place] % (Auto) 9.6 H Eos % (Auto) 1.1 Baso % (Auto) 0.6 Absolute Neuts (auto) 7.8 H Absolute Lymphs (auto) 1.0 Absolute Monos (auto) 0.9 H Absolute Eos (auto) 0.1 Absolute Basos (auto) 0.1 Absolute Nucleated RBC 0 Nucleated RBC % 0.1 Sodium 138 L Potassium 4.3 Chloride 103 Carbon Dioxide 29 Anion Gap 6 BUN 17 Creatinine 1.10 Est GFR ( Amer) 83.3 Est GFR (Non-Af Amer) 64.7 BUN/Creatinine Ratio 15.5 Glucose 126 H Calcium 8.4 L Phosphorus 2.8 Magnesium 1.6 L Total Bilirubin 0.90 AST 14 ALT 10 Alkaline Phosphatase 43 Total Protein 5.6 L Albumin 3.0 L Globulin 2.6 Albumin/Globulin Ratio 1.2 A/P s/p L hip TFN WBAT post op abx dvt ppxfor 6 weeks xrays of knee. PT/OT
--- NOTE | 2017-07-08 17:02 | RAD ---
INDICATION: Left knee pain. TECHNIQUE: 2 views of the left knee were obtained. FINDINGS: The bones are normal alignment. No joint effusion or fracture is seen. There is moderate osteoarthritic change in the medial compartment and mild osteoarthritic change in the patellofemoral compartment. IMPRESSION: MODERATE OSTEOARTHRITIC CHANGE.
--- NOTE | 2017-07-08 17:39 | OP ---
OPERATIVE REPORT: DATE OF OPERATION: 07/07/17 DATE OF : 38 ATTENDING SURGEON: Tim Marie MD YEAST CAKE CUTTER: None available. ANESTHESIOLOGIST: Dr. Arambula. ANESTHESIA: Spinal with MAC. PRE-OP DIAGNOSIS: Left intratrochanteric hip fracture. POST-OP DIAGNOSIS: Left intratrochanteric hip fracture. OPERATIVE PROCEDURE: Left hip open reduction internal fixation with an intramedullary nail. COMPLICATIONS: None. ESTIMATED BLOOD LOSS: 150 cc. IMPLANTS USED: Synthes TFN 11 short nail with a size 105 blade in the appropriate distal interval. INDICATIONS: Rafy Abbott is a 77-year-old male with the medial history significant for possible CVA and chronic urinary obstruction who has a chronic indwelling catheter who presents with left hip fracture after he fell while carrying a propane tank. This occurred on 07/06/17. He presented to the ER and was diagnosed with a left intertrochanteric hip fracture. He was with his and his son. He states he walks with a walker at times, but he was carrying a propane tank. Risks and benefits of surgery were discussed at length including but not limited to bleeding, infection, damage to nerves vessels, surrounding structures, wound nonhealing, persistent pain, need for surgery, scarring, stiffness, incomplete relief of symptoms, risk of anesthesia , and risk of DVT. He elected to proceed with surgery. He was medically optimized by the management team and n.p.o. for surgery today. DESCRIPTION OF PROCEDURE: The patient was greeted in the preoperative area by the attending surgeon. Correct extremity was marked, consent was confirmed. The patient was brought back to the operating suite. He was then rolled on his right side and then a spinal anesthesia was given. After the following was done , the patient was then moved to the fracture table and appropriately positioned with a well padded perineal post. The right leg was placed in the well leg pacheco. The left leg was placed in the traction boot and gently traction was applied. The left arm was draped over the body. The left hip was then gentle externally rotated and placed under traction to allow for a provisional reduction after which the left leg was then prepped and draped in the usual sterile fashion beginning with chlorhexidine soap, scrub, and alcohol wipe, and a final prep with ChloraPrep. The patient did have a small area of possible baylee versus skin irritation along the folds of his pannus. Care was taken to try to keep this out of the operative field. The final prep was done with ChloraPrep. After appropriate surgical pause indicating site, side, procedure, administration of antibiotics the 10 blade was then used to make an incision beginning at the greater trochanter proximally in line with the femur. Soft tissues were carefully dissected with Coe elevator fascia which was then incised after which the attempt was to ease the guidewire, but because of the patient's body habitus an awl was chosen to try to access the canal. Once the awl was appropriately positioned, confirmed on the AP and lateral views the ball tip guide wire was placed across the fracture site. This was confirmed by x -ray to make sure it was in the canal after which the opening reamer was then reamed to the appropriate depth. A size 11 nail was chosen because he had a capacious canal, minimal reaming was required. The final implant was then chosen and carefully impacted back into position after which the 125 guide arm was then placed and the guidewire was placed for the proximal interlocking blade. This was confirmed on AP and lateral views to make sure it was in the center of the neck on the lateral and more inferior in the neck on the AP. This is measured to be about 109 mm. Final length of 105 mm blade was chosen. The lateral cortex was entered using the drill, then the cannulated drill was then drilled to a depth of 105 mm. A separate food mobile driver was placed in the femoral neck proximally to prevent rotation of the femoral neck with blade placement. Once this was done the blade was impacted into position, it was confirmed on the x-ray to find the appropriately length from the tip of the subchondral bone. This was confirmed on the AP and lateral. Then the distal interlock was then placed in a percutaneous fashion, the appropriate length interlocking bolt. The screw was locked proximally. The final images were obtained. The wounds were copiously irrigated with sterile saline. The incisions were closed in layers with 0-Vicryl for the IT band, 2-0 Vicryl with the subcutaneous tissues, and hina for the skin. Sterile dressings were applied. The wound was injected with 0.25% Marcaine plain. He was awoken from anesthesia and transferred to the PACU in stable condition. POSTOPERATIVE PLAN: He will be weight bearing as tolerated. He will be out of bed to chair beginning tomorrow. He will be discharged on pain medications. He will be placed on Lovenox or DVT prophylaxis for 6 weeks due to the high risk of DVT. He was discharged and managed per the medicine team. He will follow up in the office in about 14 days. [id number]/[facility] #: [id number] MTDD
[2017-07-09 06:09] LABS: Hematocrit 33 % (42-52); Hemoglobin 10.9 g/dl (14.0-18.0); Mean Corpuscular HGB Conc 33 g/dl (31-36); Mean Corpuscular Hemoglobin 29 pg (27-31); Mean Corpuscular Volume 86 fL (80-94); Mean Platelet Volume 7.4 um3 (7.4-10.4); Platelet Count 204 10^3/ul (150-450); Red Cell Distribution Width 15 % (10.5-15); White Blood Count 9.7 10^3/ul (3.5-10.8)
[2017-07-09 06:24] LABS: EGFR Non-African American 66.1 (>60)
--- NOTE | 2017-07-09 06:48 | PN ---
Progress Note - Progress Note Date of Service: 07/09/17 SOAP: Subjective: Pt doing well. knee pain improved. xrays last evening. denies SOB or CP. hip pain manageable. tolerating PO Objective: Temp Pulse Resp BP Pulse Ox 98.3 F 93 16 134/73 96 07/09/17 04:00 07/09/17 04:00 07/09/17 04:00 07/09/17 04:00 07/09/17 04:00 NAD. AAOx3. LLE: dressing in place with strike through. calf soft and nontender. SILT grossly distally. brisk cap refill. able to flex/ext toes; dorsiflex/plantarflex ankle. Laboratory Results - last 24 hr 07/09/17 07/09/17 05:54 05:54 WBC 9.7 RBC 3.80 L Hgb 10.9 L Hct 33 L MCV 86 MCH 29 MCHC 33 RDW 15 Plt Count 204 MPV 7.4 Sodium 135 L Potassium 4.0 Chloride 101 Carbon Dioxide 28 Anion Gap 6 BUN 18 Creatinine 1.08 Est GFR ( Amer) 85.0 Est GFR (Non-Af Amer) 66.1 BUN/Creatinine Ratio 16.7 Glucose 160 H Calcium 8.6 Assessment: POD#2 from L hip TFN Plan: WBAT. dvt ppx PT/OT dressing change today dispo pending f/u 2 weeks with me in office
[2017-07-09] MEDS: Docusate CAP* 100 MG PO SCH ×2 (07:17→20:46)
[2017-07-09] MEDS ORDERED: Docusate CAP* 100 MG PO PRN (07:36)
[2017-07-09] MEDS: Magnesium Hydroxide LIQ* 30 ML UDC PO SCH ×2 (09:59→20:46)
[2017-07-09] MEDS: Pantoprazole IV* 40 MG IV SCH (09:59)
[2017-07-09] MEDS: Enoxaparin(*) 40 MG/0.4 ML SYR SUBCUT SCH (11:56)
--- NOTE | 2017-07-09 14:21 | PN ---
Hospitalist Progress Note Date of Service: 07/09/17 Pt seen and examined. Meds and labs reviewed. S.P dressing change today without any documented concerning findings. Reviewed by Orthopedics. No O/N issues. ROS: Denied TRIPP/dizziness, F/C, N/V, CP, SOB, increased cough, sputum production , abd pain, diarrhea, constipation, dysuria, myalgias, arthralgias, throat pain , and new skin lesions. The rest of the 14 point ROS are unremarkable. PHYSICAL EXAM: GEN APPEARANCE: Awake, not in acute distress, facial asymmetry post CVA in the past he mentions is old HEENT: NC/AT, PERRLA, moist oral mucosa, (-) throat erythema NECK: Soft, supple, (-) cervical LAD, (-)JVD HEART: S1S2 WNL, RRR, No MRG CHEST: CTA, BL, GAE, No W/R/R ABD: Soft, ND/NT, NABS 4x Q EXT: No C/C/BLLE (+)1 SKIN: Warm to touch PSYCH: No active psychosis, hallucinations, depression, SI/HI ASSESSMENT AND PLAN: #Comminuted, minimally impacted left intertrochanteric fracture with vertical fracture line extending to proximal diaphysis, S/P Left hip gamma nail placement POD#2: -Continue pain management -Continue current meds -Cefazolin D/Cd; will place on Lactobacillus tabs for 5 days to replenish yvonne -WBAT -Dressing change with no reported concerning findingsreviewed by Ortho; defer #Chronic SOB: -Pt does not have significant smoking history for prolonged period of time; mentions he smoked 1 pack of cigarettes/week for only about 2 years and has not had any cigarettes for over 50 years -However, 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 -F/U with Ortho in 2 weeks
[2017-07-09] MEDS: Lactobacillus Acidophilus* 1 TAB PO SCH (16:00)
[2017-07-10] MEDS: Pantoprazole IV* 40 MG IV SCH (09:07)
[2017-07-10] MEDS: Lactobacillus Acidophilus* 1 TAB PO SCH (09:07)
[2017-07-10] MEDS: Docusate CAP* 100 MG PO SCH (09:08)
[2017-07-10] MEDS: Magnesium Hydroxide LIQ* 30 ML UDC PO SCH (09:08)
[2017-07-10 10:54] VITALS: BP 171/80
--- NOTE | 2017-07-10 11:55 | DS ---
AMENDED REPORT NOW INCLUDES DESIGNATION COSIGNER - ESIGNED BEFORE ADJUSTMENT CC: Tim Marie MD; Chelsea Wells DO * DISCHARGE SUMMARY: DATE OF ADMISSION: 07/06/17 DATE OF DISCHARGE: 07/09/17 PATIENT OF: Lloyd Alexander MD ATTENDING HOSPITALIST: Elaine Capone MD * (DICTATED BY JAZZY MCCARTHY) ADMISSION DIAGNOSES: 1. Fall with left hip pain. 2. Chronic shortness of breath. 3. Conductive hearing loss. 4. Urinary retention with indwelling Sparks catheter. 5. Chronic kidney disease stage 3. DISCHARGE DIAGNOSES: 1. Fall with left hip pain. 2. Chronic shortness of breath. 3. Conductive hearing loss. 4. Urinary retention with indwelling Sparks catheter. 5. Chronic kidney disease stage 3. 6. Intertrochanteric fracture of the left femur with vertical fracture line extending inferiorly to the proximal diaphysis status post left hip repair with gamma nail placement on 07/07/17. CONSULTATION: Tim Marie MD PROCEDURES: Left hip open reduction and internal fixation with intramedullary nail placement on 07/07/17. BRIEF MEDICAL HISTORY: Mr. Abbott is a 77-year-old gentleman who has an incomplete past medical history due to the fact that he has not seen a primary care physician in years. He does report a remote history of enlarged prostate for which he has been followed by Dr. Salgado and has not seen him in a long time ; however, he has been using an indwelling Sparks catheter for years and he has been changing his own catheter at home. He does give a history of chronic shortness of breath; however, had never seen a primary care physician in a long time. The patient was at home on 07/06/17 carrying a propane tank, when he tripped and fell landing on his left hip. He experienced immediate severe pain and was not able to get up and bear weight on it. He denied any head injury or loss of consciousness. He spent the rest of day at home; however, the pain did not go away and has not improved. He continued not to be able to stand and then decided to present for the emergency room for evaluation. The patient had x-ray imaging that showed a displaced left intertrochanteric hip fracture. Given his hip fracture, the patient was admitted under hospitalist service and consultation with orthopedic services was obtained. HOSPITAL COURSE: The patient was admitted on 07/06/[address] Joe Morris was obtained later that morning. It was advised that the patient will proceed with repair of hip fractures. Surgical intervention was done after the patient was medically cleared. He was taken to the operating room on 07/07/17 where he had an open reduction and internal fixation of left intertrochanteric hip fracture with intramedullary nail. After recovery, the patient was transferred back to the surgical floor for observation. He did relatively well with some moderate discomfort; however, it was well tolerated using pain medicine as needed. He started to do physical therapy and his weightbearing was partial as recommended by orthopedic services. He denied any chest pain, headache, shortness of breath, or any other associated symptoms. It is noted that the patient initially had hypertension that was relieved with giving hydralazine as needed. He continued to be monitored at the surgical short stay unit and eventually his blood pressure normalized prior to discharge. The patient notes that he has never checked his blood pressure and never been on any blood pressure medicine before. He continues to do well with physical therapy and was ambulatory using his walker, which he has been using at home for a long period of time as well. He was seen by the correctional case records supervisor and social services designee for consultation and it was thought that it will be beneficial for the patient to obtain a short-term rehab at a assisted facility to get physical therapy on a daily basis as well as taking care of all his medical and physical needs. The patient and his family were determined not to use any of short-term rehab plans and he wanted to be discharged to home. He was covered with Lovenox for DVT prophylaxis and continued to do well. On the discharge morning, the patient was seen and examined at bedside. He was also being followed by orthopedic services and his dressing was changed revealing a clean incision with no evidence of bleeding or swelling. The patient again refused to think about any options considering short-term rehab at a local assisted facility and he was insistent to go back home since he gets help from his and son. It is noted that the patient is obese and he on a regular basis in the hospital needs 2 persons to lift him up or move him from bed to chair. I have discussed in detail all the physical needs that will be necessary to take care of him in the next postoperative period, for which I again brought up the idea of short-term rehab; however, the patient and his family refused any ideas for short- term rehab at this time. I also discussed with him coverage for DVT prophylaxis and he agreed to be covered with Lovenox once daily for the next month. Since the patient had not seen any primary care physician for years, we will arrange for him to have a followup with [facility] as early as next day or two for evaluation and possibly initiating blood pressure medicine if indicated. I also offered him to follow up with Urology; however, the patient insisted that he does not need to see any urologist at this time and he has been more than capable of changing his own Sparks catheters. At this point, he appears to be clinically stable; however, once again before discharge I brought up the necessity for a short- term rehab; however, the patient is willing to go home and will get physical therapy and home health aide visits on a daily basis. DISCHARGE MEDICATIONS: Include: 1. Colace 100 mg p.o. b.i.d. 2. Lovenox 40 mg subcu once daily for 30 days. 3. Percocet 1 tablet p.o. q.4 hours as needed for pain. PROBLEM LIST: 1. Left hip fracture, status post ORIF of left hip with intramedullary nail placement on 07/07/17. 2. Hypertension. 3. Chronic BPH with urinary retention and indwelling Sparks catheter. FOLLOWUP: The patient will follow up with orthopedic services in 2 weeks and hopefully he will follow up with [facility] in the next day or two. JAZZY MCCARTHY [id number]/[facility] #: [id number] KAYCEE
== END 2017-07-10 15:11 | disposition home health service (06) | DRG 482 ==
LOC: ED 00:22 → SSU 02:27
PROVIDERS: ADMIT Hospitalist; ATTEND Internal Medicine
PROC: 0T2BX0Z Change Drainage Device in Bladder, External Approach (ICD-10-PCS; principal; 2017-07-06)
PROC: 0QS706Z Reposition Left Upper Femur with Intramedullary Internal Fixation Device, Open Approach (ICD-10-PCS; 2017-07-07)
DX: S72.142A Displaced intertrochanteric fracture of left femur, initial encounter for closed fracture (principal); I10 Essential (primary) hypertension; K57.30 Diverticulosis of large intestine without perforation or abscess without bleeding; M25.452 Effusion, left hip; W01.0XXA Fall on same level from slipping, tripping and stumbling without subsequent striking against object, initial encounter; H90.2 Conductive hearing loss, unspecified; N18.3 Chronic kidney disease, stage 3 (moderate); N40.1 Benign prostatic hyperplasia with lower urinary tract symptoms; R33.8 Other retention of urine; I12.9 Hypertensive chronic kidney disease with stage 1 through stage 4 chronic kidney disease, or unspecified chronic kidney disease; E66.9 Obesity, unspecified; R06.02 Shortness of breath; Z87.891 Personal history of nicotine dependence; Y92.009 Unspecified place in unspecified non-institutional (private) residence as the place of occurrence of the external cause; I25.2 Old myocardial infarction; Z86.73 Personal history of transient ischemic attack (TIA), and cerebral infarction without residual deficits; Z68.31 Body mass index [BMI] 31.0-31.9, adult
CPT/HCPCS: 36415; 71045; 72192; 80048; 80053; 80061; 83036; 83735; 84100; 84484; 85014; 85018; 85025; 85027; 85610; 85730; 86850; 86900; 86901; 93005; 93306; 99285; A9270-GY; C1713; C1776; C8929; G8978-GP-CM; G8978-GP-CN; G8979-GP-CL; G8987-GO-CL; G8988-GO-CI; G8989-GO-CI; J0360; J0690; J1170; J1650; J2250; J2270; J2405; J3010

== ENCOUNTER 2017-12-08 19:12 | Emergency (ER) | payer MEDICARE ==
--- NOTE | 2017-12-08 21:44 | ED ---
GI/ HPI - HPI Summary HPI Summary: The pt is a 77 y/o male accompanied by his and son presenting to [facility] c/o dysuria since 16:30 hrs today. His son was unable to replace his Sparks catheter at home He usually changes it once a month. The pt notes genital pain rated 7/ 10 in severity and genital bleeding but denies N/V/D and body aches. His former urologist is Dr. Lo MD. He does not see any urologist currently. He does not take any blood thinners. The catheter got placed due to prostatic hyperplasia. - History of Current Complaint Chief Complaint: EDUrogenitalProblems Time Seen by Provider: 12/08/17 21:19 Stated Complaint: BLOOD IN URINE Hx Obtained From: Patient, Family/Bank Runner - and son Onset/Duration: Started Hours Ago, Still Present Timing: Constant Severity: Moderate Current Severity: Moderate Pain Intensity: 7 Location of Pain: Groin Pain Characteristics: Sharp Associated Signs and Symptoms: Positive: Dysuria - Additional Pertinent History Primary Care Physician: [facility] - Allergy/Home Medications Allergies/Adverse Reactions: Allergies Allergy/AdvReac Type Severity Reaction Status Date / Time No Known Allergies Allergy Verified 12/08/17 19:20 PMH/Surg Hx/FS Hx/Imm Hx Previously Healthy: No Endocrine/Hematology History: Denies: Hx Anticoagulant Therapy, Hx Thyroid Disease Cardiovascular History: Reports: Hx Hypertension Denies: Hx Auto Implanted Cardiovert Defib, Hx Embolism, Hx Pacemaker/ICD, Hx Peripheral Vascular Disease, Hx Rheumatic Fever Respiratory History: Reports: Hx Asthma Denies: Hx Chronic Bronchitis, Hx Chronic Obstructive Pulmonary Disease (COPD ) GI History: Denies: Hx Gastrointestinal Bleed History: Reports: Hx Benign Prostatic Hyperplasia Musculoskeletal History: Denies: Hx Congenital Bone Abnormalities Sensory History: Reports: Hx Contacts or Glasses, Hx Hearing Problem Denies: Hx Hearing Aid Opthamlomology History: Reports: Hx Contacts or Glasses Neurological History: Reports: Other Neuro Impairments/Disorders - CVA with L sided weakness - Cancer History Cancer Type, Location and Year: None reported - Surgical History Surgery Procedure, Year, and Place: none Infectious Disease History: No Infectious Disease History: Denies: Traveled Outside the [place] in Last 30 Days - Family History Known Family History: Negative: Diabetes, Renal Disease, Respiratory Disease, Seizure Disorder - Social History Occupation: Retired Lives: With Family Alcohol Use: None Substance Use Type: Reports: None Smoking Status (MU): Never Smoked Tobacco Review of Systems Constitutional: Negative - Body aches Negative: Vomiting, Diarrhea, Nausea Positive: dysuria, pain All Other Systems Reviewed And Are Negative: Yes Physical Exam - Summary Physical Exam Summary: GENERAL: Patient is a well developed and nourished M who is lying comfortable in the stretcher. Patient is not in any acute respiratory distress. HEAD AND FACE: Normocephalic EYES: PERRLA, EOMI x 2. EARS: Hearing grossly intact. MOUTH: Oropharynx within normal limits. NECK: Supple, trachea is midline, no adenopathy, no JVD, no carotid bruit. CHEST: Symmetric, no tenderness at palpation LUNGS: Clear to auscultation bilaterally. No wheezing or crackles. CVS: Regular rate and rhythm, S1 and S2 present, no murmurs or gallops appreciated. ABDOMEN: Soft, tender in the suprapubic region. Bowel sounds are normal. No abdominal abnormal pulsations. EXTREMITIES: Full ROM in all major joints, no edema, no cyanosis or clubbing. NEURO: Alert and oriented x 3. No acute neurological deficits. Speech is normal and follows commands. SKIN: Dry and warm Triage Information Reviewed: Yes Vital Signs On Initial Exam: Initial Vitals Temp Pulse Resp BP Pulse Ox 102.9 F 130 20 158/95 100 12/08/17 19:16 12/08/17 19:16 12/08/17 19:16 12/08/17 19:16 12/08/17 19:16 Vital Signs Reviewed: Yes Diagnostics - Vital Signs Vital Signs Temp Pulse Resp BP Pulse Ox 12/08/17 19:16 102.9 F 130 20 158/95 100 - Laboratory Result Diagrams: 12/08/17 22:02 12/08/17 22:02 Lab Statement: Any lab studies that have been ordered have been reviewed, and results considered in the medical decision making process. GIGU Course/Dx - Course Course Of Treatment: A 77 year-old M with a Mhx of prostatic hyperplasia presents to the ED with a CC of dysuria since 16:30 hrs today. His son was unable to replace his Sparks catheter at home. The pt notes genital bleeding but denies N/V/D and body aches. A physical exam revealed tenderness in the suprapubic region. In the ED course, pt was given Cephalexin 500mg PO which improved the symptoms. The patient left AMA with a final Dx of urinary retention and UTI. Strict return precautions given and he will otherwise follow up with a urologist. Allergies noted. - Diagnoses Provider Diagnoses: Urinary retention due to benign prostatic hyperplasia, UTI (urinary tract infection) Discharge - Sign-Out/Discharge Documenting (check all that apply): Patient Departure - DC - Discharge Plan Condition: Stable Disposition: AGAINST MEDICAL ADVICE Prescriptions: Cephalexin CAP* [Keflex CAP*] 500 mg PO QID #28 cap Patient Education Materials: Urinary Retention in Men (ED), Urinary Tract Infection in Men (ED), Sparks Catheter Placement and Care (ED) Referrals: Devaughn Arcos MD [Primary Care Provider] - Mohamud Salgado MD [Medical Doctor] - Additional Instructions: Follow up with the urologist as soon as possible. Return to ED for any new or worsening symptoms - Billing Disposition and Condition Condition: STABLE Disposition: Against Medical Advice - Attestation Statements Document Initiated by Scribe: Yes Documenting Scribe: Hilda Ariza Provider For Whom Scribe is Documenting (Include Credential): Dr. Giovani Hillman MD Scribe Attestation: Hilda Guzmán scribed for Dr. Giovani Hillman MD on 12/09/17 at 0542. Scribe Documentation Reviewed: Yes Provider Attestation: The documentation as recorded by the Hilda carrillo accurately reflects the service I personally performed and the decisions made by , Dr. Giovani Hillman MD
[2017-12-08 22:18] LABS: ABS Basophils 0 10^3/ul (0-0.2); ABS Eosinophils 0 10^3/ul (0-0.6); ABS Lymphocytes 0.2 10^3/ul (1.0-4.8); ABS Monocytes 0.4 10^3/ul (0-0.8); ABS Nucleated RBC 0 10^3/ul; Eosinophil % 0 % (0-6); Hematocrit 39 % (42-52); Hemoglobin 12.5 g/dl (14.0-18.0); Lymphocyte % 1.9 % (25-47); Mean Corpuscular HGB Conc 32 g/dl (31-36); Mean Corpuscular Hemoglobin 28 pg (27-31); Mean Corpuscular Volume 86 fL (80-94); Mean Platelet Volume 7.6 um3 (7.4-10.4); Nucleated Red Blood Cells % 0; Platelet Count 202 10^3/ul (150-450); Red Cell Distribution Width 16 % (10.5-15); White Blood Count 12.7 10^3/ul (3.5-10.8)
[2017-12-08 22:26] LABS: INR 0.99 (0.77-1.02)
[2017-12-08 22:38] LABS: EGFR Non-African American 55.9 (>60)
[2017-12-08 23:26] LABS: Urine Appearance Turbid; Urine Blood 2+ (Negative); Urine Color Amber; Urine Ketones Negative (Negative); Urine Protein 2+(100 mg/dL) (Negative); Urine Red Blood Cell 3+(>10/hpf) (Absent); Urine Specific Gravity 1.015 (1.010-1.030); Urine Urobilinogen Negative (Negative); Urine White Blood Cell 3+(>20/hpf) (Absent)
[2017-12-08] MEDS ORDERED: Cephalexin CAP* 500 MG PO ONE (23:41)
[2017-12-09] MEDS ORDERED: Cephalexin CAP* 500 MG PO ONE (00:30)
[2017-12-09 00:58] VITALS: BP 122/70
--- NOTE | 2017-12-19 17:12 | PN ---
Progress Note - Progress Note Date of Service: 12/08/17 Note: Pt. was seen in ED 12/08 for urinary sxs and started on keflex. Correction to urine culture was printed off today growing numerous organisms. I spoke with laurence at 1545 and they state that all species in culture were not fully worked up until recently. Micro states that they are taking care of this and will call pt.'s PCP with new culture results and further treatment.
== END 2017-12-09 00:56 | disposition left against medical advice (07) ==
LOC: ED 19:12
DX: N40.1 Benign prostatic hyperplasia with lower urinary tract symptoms (principal); R33.8 Other retention of urine; N39.0 Urinary tract infection, site not specified; R30.0 Dysuria; I10 Essential (primary) hypertension
CPT/HCPCS: 36415; 80053; 81003; 81015; 85025; 85610; 85730; 86900; 86901; 87077; 87086; 87186; 99283; A9270-GY